=== PATIENT | female | born 1955 | race Two or more races ===

== ENCOUNTER 2019-02-07 20:07 | Emergency (ER) | payer MEDICARE, OTHER ==
[~2019-02-07] VITALS: Ht 160 cm; Wt 77.5 kg
[~2019-02-07 20:07] MED LIST: CEPH-443 PO; MTF1000T PO; NOVO7030 SC
[2019-02-07 20:13] VITALS: BP 161/69; PULSE 98; RESP 16; Ht 160 cm; Wt 77.5 kg
== END 2019-02-07 23:30 | disposition home or self-care (01) ==
LOC: FTE 20:07
DX: E11.9 Type 2 diabetes mellitus without complications (principal); N30.00 Acute cystitis without hematuria; Z76.0 Encounter for issue of repeat prescription; Z79.4 Long term (current) use of insulin
CPT/HCPCS: 80048; 81001; 82010; 82962; 85025; 99283